=== PATIENT | female | born 1970 | race Caucasian/White ===

== ENCOUNTER 2017-06-18 05:35 | Outpatient (CLI) | payer BC ==
[~2017-06-18] VITALS: Ht 165.1 cm; Wt 100.2 kg
[~2017-06-18 05:35] MED LIST: ALBU8.5H4 IH; FLUO20CA25 PO; FLUT1DIS26 IH; HYDR-3454 PO; METO25TA2 PO; MNTL10T PO; VICODIN 5/325; VISCOUS XYLOCAINE PO
[2017-06-18] MEDS ORDERED: MONT10TA24 PO (15:08)
[2017-06-18] MEDS ORDERED: CITA20TA9 PO (15:08)
[2017-06-18] MEDS ORDERED: OMEP40CA36 PO (15:08)
[2017-06-18] MEDS ORDERED: SIMV20TA3 PO (15:08)
[2017-06-18] MEDS ORDERED: METO-333 PO (15:08)
== END 2017-06-18 15:13 ==
LOC: PREOP 05:35
PROVIDERS: ATTEND Otolaryngology Otolaryngology/Facial Plastic Surgery
DX: Z01.818 Encounter for other preprocedural examination (principal); K14.9 Disease of tongue, unspecified

== ENCOUNTER 2017-06-25 07:16 | Day surgery (SDC) | payer BC ==
[~2017-06-25] VITALS: Ht 162.6 cm; Wt 88.5 kg
[~2017-06-25 07:16] MED LIST changes: +CITA20TA9 PO; +METO-333 PO; +MONT10TA24 PO; +OMEP40CA36 PO; +SIMV20TA3 PO
--- OUTSIDE RECORDS SUMMARY | 2017-06-25 07:19 | XMS REPORT | Continuity of Care Document ---
Author Author [facility] Organization [facility] Address Unknown Phone Unavailable Allergies Active Description Code Type Severity Reaction Onset Reported/Identified Relationship to Patient Clinical Status Yes No Known Drug Allergies [id number] Drug Allergy Unknown N/A 05/14/2012 Medications There is no data. 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 06/17/2017 Ot 493.90 ASTHMA, UNSPECIFIED 06/17/2017 Ot 529.8 TONGUE DISORDER NEC 06/17/2017 Ot 780.79 OTH MALAISE FATIGUE 06/17/2017 Ot V72.63 PRE- PROCEDURAL LABORATORY EXAMINATION 06/17/2017 Ot V72.81 EXAM-PRE- OPERATIVE CARDIOVASCULAR 06/17/2017 Ot V72.83 EXAM PRE- OPERATIVE NEC 06/17/2017 Ot V74.8 SCREEN- BACTERIAL DIS NEC 06/18/2017 FIORELLA SUN, SHIRA Garsia Ot K14.9 DISEASE OF TONGUE, UNSPECIFIED 06/18/2017 FIORELLA SUN, SHIRA Garsia Ot Z01.818 ENCOUNTER FOR OTHER PREPROCEDURAL EXAMIN 06/19/2017 SHIRA BARROS MD Ot K14.9 DISEASE OF TONGUE, UNSPECIFIED 06/19/2017 SHIRA BARROS MD Ot Z01.818 ENCOUNTER FOR OTHER PREPROCEDURAL EXAMIN 06/24/2017 Ot 493.90 ASTHMA, UNSPECIFIED 06/24/2017 Ot 529.8 TONGUE DISORDER NEC 06/24/2017 Ot 780.79 OTH MALAISE FATIGUE 06/24/2017 Ot V72.63 PRE- PROCEDURAL LABORATORY EXAMINATION 06/24/2017 Ot V72.81 EXAM-PRE- OPERATIVE CARDIOVASCULAR 06/24/2017 Ot V72.83 EXAM PRE- OPERATIVE NEC 06/24/2017 Ot V74.8 SCREEN- BACTERIAL DIS NEC Procedures There is no data. Results There is no data. Encounters ACCT No. Visit Date/Time Discharge Status Pt. Type Provider Facility Loc./Unit Complaint [id number] 12/12/2016 07:45:00 12/12/2016 23:59:00 DIS Outpatient [facility] [place] [facility] [id number] 06/18/2017 05:35:00 06/18/2017 15:13:00 DIS Outpatient SHIRA BARROS MD [facility] PREOP TONGUE LESION [id number] 06/25/2017 07:16:00 ACT Outpatient SHIRA BARROS MD [facility] [place] TONGUE LESION [id number] 05/21/2012 06:06:00 Document Registration [id number] 05/14/2012 15:26:00 Document Registration
[2017-06-25 07:30] VITALS: BP 124/80
[2017-06-25] MEDS ORDERED: LACTATED RINGERS 1,000 ML IV PRN ×2 (07:41→07:51)
[2017-06-25] MEDS ORDERED: ONDANSETRON 4 MG/2 ML (SDV) Z0FRAN IV ONE (07:45)
[2017-06-25] MEDS ORDERED: FAMOTIDINE 20MG/2ML IV (PEPCID) IV ONE (07:45)
[2017-06-25] MEDS ORDERED: SCOPOLAMINE 1.5 MG (TRANSDERM-SCOP) PATCH TOP ONE (07:45)
[2017-06-25] MEDS ORDERED: SCOPOLAMINE 1.5 MG (TRANSDERM-SCOP) PATCH ONE (07:57)
[2017-06-25] MEDS ORDERED: ROCURONIUM 10 MG/ML 5 ML SYRINGE IV ONE (08:17)
[2017-06-25] MEDS ORDERED: SEVOFLURANE (ULTANE) 15 ML INHAL SOLN ONE (08:17)
[2017-06-25] MEDS ORDERED: fentaNYL INJECTION 100 MCG/2 ML AMP ONE (08:17)
[2017-06-25] MEDS ORDERED: LIDOCAINE PF 2% 5 ML (XYLOCAINE) VIAL ONE (08:17)
[2017-06-25] MEDS ORDERED: proPOfol 200 MG/20 ML (DIPRIVAN) VIAL IV ONE (08:17)
[2017-06-25] MEDS ORDERED: MIDAZOLAM 2 MG/2 ML (VERSED) VIAL ONE (08:18)
[2017-06-25] MEDS ORDERED: LIDOCAINE/EPI 1%-1:200,000 (XYLOCAINE) 10 ML VIAL ONE (08:26)
--- NOTE | 2017-06-25 09:16 | Progress Note-Pre Operative ---
Pre-Operative Progress Note H&P Reviewed The H&P was reviewed, patient examined and no changes noted. Date Seen by Provider: June 25, 2017 Time Seen by Provider: 08:00 Date H&P Reviewed: June 25, 2017 Time H&P Reviewed: 08:00 Pre-Operative Diagnosis: Right Posterior Tongue Lesion SHIRA BARROS MD June 25, 2017 9:16 am
[2017-06-25] MEDS ORDERED: SUCCINYLCHOLINE INJ 100 MG/5 ML SYR ONE (09:29)
--- NOTE | 2017-06-25 10:06 | Progress Note-Post Operative ---
Post-Operative Progess Note Surgeon (s)/Nurse Chemical Dependency (s) Surgeon SHIRA BARROS MD Nurse Chemical Dependency n/a Pre-Operative Diagnosis Right Posterior Tongue Lesion Post-Operative Diagnosis same Post-Op Procedure Note Date of Procedure: June 25, 2017 Name of Procedure Performed: Excision of Right Posterior Tongue Lesion Description & Findings Description and Findings: n/a Anesthesia Type get Estimated Blood Loss minimal Packing none. Specimen(s) collected/removed Right Tongue [id number] inflammation-no invasion seen on forzen SHIRA BARROS MD June 25, 2017 10:06 am
[2017-06-25] MEDS ORDERED: ONDANSETRON 4 MG/2 ML (SDV) Z0FRAN IVP PRN (10:15)
[2017-06-25] MEDS ORDERED: HYDROcodone/APAP 7.5MG-325 MG/15 ML (LORTAB) UDC PO PRN (10:15)
[2017-06-25] MEDS ORDERED: morphine INJ 10 MG/ML 1ML (SYR OR VIAL) IVP PRN (10:15)
[2017-06-25] MEDS ORDERED: HYDROcodone/APAP 5 MG/325 MG (LORTAB) TAB PO PRN (10:15)
[2017-06-25] MEDS ORDERED: LIDOCAINE 2% VISCOUS 15 ML UDC PO PRN (10:15)
[2017-06-25] MEDS ORDERED: ACETAMINOPHEN 325 MG TABLET/CAPLET (TYLENOL) PO PRN (10:15)
--- NOTE | 2017-06-25 10:54 | Anesthesia-General Post-Op ---
General Patient Condition Mental Status/LOC: Same as Preop Cardiovascular: Satisfactory Nausea/Vomiting: Absent Respiratory: Satisfactory Pain: Controlled Complications: Absent Post Op Complications Complications None Follow Up Care/Instructions Patient Instructions None needed. Anesthesia/Patient Condition Patient Condition Patient is doing well, no complaints, stable vital signs, no apparent adverse anesthesia problems. No complications reported per nursing. [place] [facility] [place]: Yes MIKE PAN CRNA June 25, 2017 10:54
[2017-06-25 11:05] VITALS: BP 119/80
[2017-06-25] MEDS ORDERED: TETRACAINESUCKERS MT (11:21)
[2017-06-25] MEDS ORDERED: LIDO15SO2 BU (11:21)
[2017-06-25] MEDS ORDERED: HYDR-3812 PO (11:21)
[2017-06-25] MEDS ORDERED: HYDR15SO8 PO (11:21)
[2017-06-25 11:35] VITALS: BP 119/76
[2017-06-25 12:05] VITALS: BP 121/78
[2017-06-25 12:20] VITALS: BP 121/78
== END 2017-06-25 12:30 | disposition home or self-care (01) ==
LOC: SDC 07:16
PROVIDERS: ATTEND Otolaryngology Otolaryngology/Facial Plastic Surgery
DX: K14.0 Glossitis (principal); I10 Essential (primary) hypertension; J45.909 Unspecified asthma, uncomplicated; Z79.899 Other long term (current) drug therapy; Z85.810 Personal history of malignant neoplasm of tongue
CPT/HCPCS: 84703; 87081; 88305; 88331